=== PATIENT | female | born 1985 | race Caucasian/White ===

== ENCOUNTER 2017-04-18 03:08 | Emergency (ER) | payer OTHER ==
[~2017-04-18] VITALS: Ht 162.6 cm; Wt 68.0 kg
[~2017-04-18 03:08] MED LIST: benadryl; triamcinolone
[2017-04-18 03:12] VITALS: BP 135/81
== END 2017-04-18 05:00 | disposition left against medical advice (07) ==
LOC: ER 03:08
DX: O20.9 Hemorrhage in early pregnancy, unspecified (principal); O26.891 Other specified pregnancy related conditions, first trimester; R10.9 Unspecified abdominal pain; Z3A.12 12 weeks gestation of pregnancy; Z53.21 Procedure and treatment not carried out due to patient leaving prior to being seen by health care provider

== ENCOUNTER 2017-10-01 | Observation (INO) | payer MEDICARE, OTHER ==
[~2017-10-01] VITALS: Ht 162.6 cm; Wt 81.6 kg
[2017-10-01] MEDS ORDERED: LACTATED RINGERS 1,000 ML IV STA (00:56)
[2017-10-01] MEDS ORDERED: PREN-52 MT (01:48)
== END 2017-10-01 01:15 | disposition home or self-care (01) ==
LOC: L&D
PROVIDERS: ADMIT Obstetrics & Gynecology; ATTEND Obstetrics & Gynecology
DX: O62.9 Abnormality of forces of labor, unspecified (principal); Z3A.34 34 weeks gestation of pregnancy
CPT/HCPCS: 99281; G0378